=== PATIENT | male | born 1980 | race Caucasian/White ===

== ENCOUNTER 2016-05-09 18:28 | Emergency (ER) | payer BC ==
--- NOTE | 2016-05-10 13:49 | ER ---
ADMIT: 05/09/2016 RM/LOC: ER [facility] MR#: [id number] [id number] [place] [id number] [place] [id number] Emergency Room Report SEX: M AGE: 35 : 1980 DATE: 05/09/2016 TIME: 1828 hours. Please refer to my T-sheet for complete H and P. HISTORY OF PRESENT ILLNESS: Briefly, the patient is a 35-year-old who is out visiting family. They are heading back to [place] tomorrow. He started having left flank pain. He has had 2-3 kidney stones before. He has had 2 and he has had to be seen for he thinks he passed another one on his own in the past. 12/15, left lower quadrant up into his flank. He has nausea and vomited x1. He says this feels like his kidney stones. He has never had to have a ureteral stent. PHYSICAL EXAMINATION: VITAL SIGNS: Blood pressure 186/106, heart rate 79, respirations 18, temp 99.1, sat 100%. GENERAL: No acute distress. HEENT: Grossly normal. LUNGS: Clear. HEART: Regular. ABDOMEN: Mild tenderness in left lower quadrant. No rebound or guarding. A little bit of tenderness to his left CVA region. EMERGENCY DEPARTMENT COURSE: I had a long discussion with him. He says he has had 3 CAT scans in the past. A little bit concerned about his age about the multiple CAT scans. He says this feels just like his kidney stone pain before. His CBC was normal except white count 13.1. Chemistries normal except potassium 3.5. Glucose 106, creatinine 1.5. UA showed 2 red cells, trace blood, otherwise negative. He was given a liter of normal saline bolus, Toradol 30 IV, Zofran 4 IV, and 1 mg of Dilaudid. His pain was much better. His significant other was here to drive him home. ASSESSMENT: 1. Acute renal colic with a known history of such. 2. Ureterolithiasis. PLAN: Fluids. Return if worse. Motrin. [place] 5, I gave him a script for 20. Follow up with his urologist as soon as he gets back to [place] tomorrow. Alex Aviles MD/ angel JOB #: [id number] CC: Beny Vilchis MD, Attending Physician Francisco Austin MD, Family Physician
== END 2016-05-09 20:45 | disposition home or self-care (01) ==
LOC: ER 18:28
DX: N20.1 Calculus of ureter (principal); Z87.442 Personal history of urinary calculi; Z88.5 Allergy status to narcotic agent